=== PATIENT | female | born 1960 | race Caucasian/White ===

== ENCOUNTER 2020-05-27 09:38 | Inpatient (IN) | payer OTHER ==
[~2020-05-27] VITALS: Ht 170.2 cm; Wt 80.0 kg
[2020-05-27 12:47] LABS: Basophils # (auto) 0 10 ^3/uL (0-0.2); Basophils % (auto) 0.6 % (0.0-2.0); Eosinophils # (auto) 0.1 10 ^3/uL (0-0.8); Eosinophils % (auto) 0.9 % (0.0-7.0); Hematocrit 40.7 % (36.0-46.0); Hemoglobin 13.7 g/dL (12.2-16.2); Lymphocytes # (auto) 1.2 10 ^3/uL (0.4-5.4); Lymphocytes % (auto) 21.2 % (10.0-50.0); Mean Corpuscular Hemoglobin 29.4 pg (28.0-32.0); Mean Corpuscular Hgb Conc. 33.8 g/dL (32.0-36.0); Mean Corpuscular Volume 87.2 fL (80.0-100.0); Monocytes # (auto) 0.3 10 ^3/uL (0-1.3); Neutrophils % (auto) 72.3 % (37.0-80.0); Platelet Count (auto) 212 10^3/uL (140-450); Red Blood Cells 4.66 10^6/uL (4.0-5.20); Red Cell Distribution Width 13.5 % (11.8-14.3); White Blood Cell 5.6 10^3/uL (4.4-10.8)
[2020-05-27 13:05] LABS: Albumin 3.7 g/dL (3.4-5.0); Calcium 7.9 mg/dL (8.5-10.1); Potassium 3.2 mmol/L (3.5-5.1)
[2020-05-27 13:09] LABS: Bilirubin, Total 0.4 mg/dL (0.2-1.0); Total Protein 7.5 g/dL (6.4-8.2)
[2020-05-27 13:44] LABS: Urine Bacteria NONE SEEN /hpf (None Seen); Urine Blood Negative /uL (Negative); Urine Specific Gravity 1.007 (1.001-1.035); Urine WBC <1 /hpf (0 - 5)
[2020-05-27] MEDS ORDERED: MORPHINE SULF INJ 2 MG/ML SYRINGE 1ML IV PRN ×2 (13:45→14:00)
[2020-05-27] MEDS ORDERED: ALBUTEROL SULF HFA 90MCG INH 200DOSE IN PRN (13:45)
[2020-05-27] MEDS ORDERED: NITROGLYCERIN 0.4 MG SL TAB SL PRN (13:45)
[2020-05-27] MEDS ORDERED: levoFLOXacin 500MG 100 ML IV ONE (14:00)
[2020-05-27] MEDS ORDERED: TEMAZEPAM 15 MG CAP PO PRN (14:00)
[2020-05-27] MEDS ORDERED: POTASSIUM EFFERVESENT TAB 25 MEQ PO ONE (14:00)
[2020-05-27] MEDS ORDERED: LACTULOSE 20Gm/30ML SOLN PO PRN (14:00)
[2020-05-27] MEDS ORDERED: PROMETHAZINE HCL 25 MG/ML 1ML IV PRN (14:00)
[2020-05-27] MEDS ORDERED: ACETAMINOPHEN 500 MG TAB PO PRN (14:00)
[2020-05-27] MEDS: SODIUM CHLORIDE 0.9% 1,000 ML IV SCH (15:02)
[2020-05-27] MEDS: FAMOTIDINE 20 MG TAB PO SCH (21:34)
[2020-05-27] MEDS ORDERED: BUDESONIDE (INHALATION) 180 MCG IH IN SCH (22:00)
[2020-05-28] MEDS: SODIUM CHLORIDE 0.9% 1,000 ML IV SCH ×2 (03:20→14:15)
[2020-05-28 06:31] LABS: Basophils # (auto) 0 10 ^3/uL (0-0.2); Basophils % (auto) 0.4 % (0.0-2.0); Eosinophils # (auto) 0.1 10 ^3/uL (0-0.8); Hematocrit 35.1 % (36.0-46.0); Lymphocytes # (auto) 1.6 10 ^3/uL (0.4-5.4); Lymphocytes % (auto) 35.7 % (10.0-50.0); Mean Corpuscular Hemoglobin 29.7 pg (28.0-32.0); Mean Corpuscular Hgb Conc. 34.1 g/dL (32.0-36.0); Mean Corpuscular Volume 86.9 fL (80.0-100.0); Monocytes # (auto) 0.3 10 ^3/uL (0-1.3); Monocytes % (auto) 6.4 % (0.0-12.0); Neutrophils # (auto) 2.4 10 ^3/uL (1.6-8.6); Neutrophils % (auto) 55.5 % (37.0-80.0); Nucleated Red Blood Cells % 0.1 %; Platelet Count (auto) 186 10^3/uL (140-450); Red Blood Cells 4.04 10^6/uL (4.0-5.20); Red Cell Distribution Width 13.5 % (11.8-14.3); White Blood Cell 4.4 10^3/uL (4.4-10.8)
[2020-05-28 06:46] LABS: Potassium 4.1 mmol/L (3.5-5.1)
[2020-05-28 06:58] LABS: Albumin 3.3 g/dL (3.4-5.0); BUN/Creatinine Ratio 20.3; Bilirubin, Total 0.4 mg/dL (0.2-1.0)
[2020-05-28] MEDS: FAMOTIDINE 20 MG TAB PO SCH (07:48)
[2020-05-28] MEDS: ZINC SULFATE 220mg CAP or TAB PO SCH (07:48)
[2020-05-28] MEDS: ASCORBIC ACID 1,000 MG TAB PO SCH (07:49)
[2020-05-28] MEDS: CHOLECALCIFEROL (VITD3) 2,000 UNIT CAP PO SCH (07:49)
[2020-05-28] MEDS ORDERED: DexAMETHasone SOD PHOS 10MG/1ML VIAL INJ IV SCH (10:00)
[2020-05-28] MEDS ORDERED: levoFLOXacin 500MG 100 ML IV SCH (10:00)
[2020-05-28] MEDS: traMADol HCL 50 MG TAB PO PRN ×2 (10:30→19:14)
[2020-05-28] MEDS ORDERED: ALBUTEROL SULF 2.5 MG/0.5ML(0.5%) NEB SOLN NEB PRN (14:15)
[2020-05-28] MEDS ORDERED: IPRATROPIUM BROM 0.5 MG/2.5ML INH SOL NEB PRN (14:15)
[2020-05-28] MEDS ORDERED: levoFLOXacin 250MG 50 ML IV ONE (14:15)
[2020-05-28 23:00] VITALS: BP 126/72
[2020-05-28 23:34] VITALS: BP 126/72
[2020-05-29 05:00] VITALS: BP 93/56
[2020-05-29] MEDS: SODIUM CHLORIDE 0.9% 1,000 ML IV SCH ×3 (06:26→15:47)
[2020-05-29 08:00] VITALS: BP 116/80
[2020-05-29] MEDS: levoFLOXacin 750MG 150 ML IV SCH ×2 (10:02→14:10)
[2020-05-29] MEDS: FAMOTIDINE 20 MG TAB PO SCH ×2 (10:03→14:10)
[2020-05-29] MEDS: ASCORBIC ACID 1,000 MG TAB PO SCH ×2 (10:03→14:10)
[2020-05-29] MEDS: ZINC SULFATE 220mg CAP or TAB PO SCH ×2 (10:03→14:10)
[2020-05-29] MEDS: CHOLECALCIFEROL (VITD3) 2,000 UNIT CAP PO SCH ×2 (10:03→14:10)
[2020-05-29] MEDS: traMADol HCL 50 MG TAB PO PRN (10:32)
[2020-05-29 16:00] VITALS: BP 113/77
[2020-05-29 22:00] VITALS: BP 130/85
[2020-05-30 05:00] VITALS: BP 105/55
[2020-05-30 08:00] VITALS: BP 117/83
[2020-05-30] MEDS: levoFLOXacin 750MG 150 ML IV SCH (10:28)
[2020-05-30] MEDS: ZINC SULFATE 220mg CAP or TAB PO SCH (10:28)
[2020-05-30] MEDS: ASCORBIC ACID 1,000 MG TAB PO SCH (10:29)
[2020-05-30] MEDS: FAMOTIDINE 20 MG TAB PO SCH (10:29)
[2020-05-30] MEDS: CHOLECALCIFEROL (VITD3) 2,000 UNIT CAP PO SCH (10:30)
[2020-05-30] MEDS ORDERED: LEVO750T8 PO (12:35)
[2020-05-30 14:55] VITALS: BP 117/83
== END 2020-05-30 16:06 | disposition home or self-care (01) | DRG 137 ==
LOC: ER 09:38 → TELE 13:34 → TELE-CENTR 05-28 22:41
PROVIDERS: ADMIT Internal Medicine; ATTEND Internal Medicine
DX: U07.1 COVID-19 (principal); J96.00 Acute respiratory failure, unspecified whether with hypoxia or hypercapnia; J93.11 Primary spontaneous pneumothorax; J12.82 Pneumonia due to coronavirus disease 2019; E87.6 Hypokalemia; J98.11 Atelectasis; K21.9 Gastro-esophageal reflux disease without esophagitis; Z88.5 Allergy status to narcotic agent; Z82.3 Family history of stroke; Z82.49 Family history of ischemic heart disease and other diseases of the circulatory system; Z83.3 Family history of diabetes mellitus
CPT/HCPCS: 36415; 71045; 71250; 80053; 81001; 84484; 85025; 87426; 93005; 96365; G0378; J1100; J1956